=== PATIENT | female | born 2000 | race Caucasian/White ===

== ENCOUNTER 2019-08-15 00:06 | Inpatient (IN) | payer OTHER ==
[2019-08-15] MEDS ORDERED: Lidocaine 1% 50 ML MDV INJECT PRN (00:27)
[2019-08-15] MEDS ORDERED: Sodium Chloride 0.9% 10 ML Syringe FLUSH PRN (00:27)
[2019-08-15] MEDS ORDERED: Sodium Chloride 0.9% 10 ML SDV IV PRN (00:27)
[2019-08-15] MEDS ORDERED: Ampicillin 2 GM in Sodium Chloride 0.9% 100 ML IV ONE (00:27)
[2019-08-15] MEDS ORDERED: Terbutaline 1 MG/ML SDV SUBCUT PRN (00:27)
[2019-08-15] MEDS ORDERED: Methylergonovine 0.2 MG/1 ML Amp IM PRN ×2 (00:27→12:05)
[2019-08-15] MEDS ORDERED: Misoprostol 200 MCG Tab PO PRN (00:27)
[2019-08-15] MEDS ORDERED: Sodium Chloride 0.9% 2.5 ML Syringe FLUSH PRN (00:27)
[2019-08-15] MEDS ORDERED: Misoprostol 25 MCG (1/4 of 100 MCG) Tab VAG PRN ×2 (00:27)
[2019-08-15] MEDS ORDERED: Butorphanol 1 MG/ML SDV IVPUSH PRN (00:27)
[2019-08-15] MEDS ORDERED: Nalbuphine 10 MG/1 ML Vial IVPUSH PRN (00:27)
[2019-08-15] MEDS ORDERED: Carboprost Tromethamine 250 MCG/1 ML Amp IM PRN (00:27)
[2019-08-15] MEDS ORDERED: Tranexamic Acid 1,000 MG in Sodium Chloride 0.9% 100 ML IV PRN (00:27)
[2019-08-15] MEDS ORDERED: Water For Irrigation,Sterile 1,000 ML Container IRR PRN (00:27)
[2019-08-15] MEDS ORDERED: Ondansetron 4 MG/2 ML SDV IVPUSH PRN (00:27)
[2019-08-15] MEDS ORDERED: Oxytocin/0.9 % Sodium Chloride 30 UNIT/500 ML BAG IV SCH ×2 (00:30)
[2019-08-15] MEDS ORDERED: Lactated Ringers 1,000 ML IV SCH (00:30)
[2019-08-15] MEDS ORDERED: Misoprostol 25 MCG (1/4 of 100 MCG) Tab PO ONE (00:31)
[2019-08-15] MEDS ORDERED: Misoprostol 25 MCG (1/4 of 100 MCG) Tab PO SCH (04:00)
[2019-08-15] MEDS: Ampicillin 1 GM in Sodium Chloride 0.9% 50 ML IV SCH ×2 (05:21→09:51)
--- NOTE | 2019-08-15 08:45 | PCM.LDHP ---
L&D History of Present Illness - General Date of Service: 08/15/19 Admit Problem/Dx: Patient Status Order with Admit Dx/Problem 08/15/19 00:27 Patient Status [ADT] Routine Admission Diagnosis/Problem Admission Diagnosis/Problem 08/15/19 08:37 19 yo EDC 08/22/2019 37 0/7wks IOL for term, O+, RI, GBS pos. AROM clear /-2 soft post Source of Information: Patient History Limitations: Reports: No Limitations - History of Present Illness Improves with: Reports: None Worsens with: Reports: None Associated Symptoms: Reports: N - Related Data Allergies/Adverse Reactions: Allergies Allergy/AdvReac Type Severity Reaction Status Date / Time No Known Allergies Allergy Verified 02/25/18 08:30 MDT Home Medications: Home Meds Pnv No.103/Folic/Om3s/Fish Oil [ Gummies] 2 each PO DAILY 02/25/18 [ History] Docusate Sodium [Colace] 100 mg PO BID PRN cap 03/22/18 [Rx] Ibuprofen [Motrin] 600 mg PO Q6H PRN tablet 03/22/18 [Rx] Past Medical History - Past Health History Medical/Surgical History: Denies Medical/Surgical History HEENT History: Reports: None Cardiovascular History: Reports: None Respiratory History: Reports: None Gastrointestinal History: Reports: None Genitourinary History: Reports: None [employer] History: Reports: Musculoskeletal History: Reports: None Neurological History: Reports: Migraines Psychiatric History: Reports: None Endocrine/Metabolic History: Reports: None Hematologic History: Reports: None Immunologic History: Reports: None Oncologic (Cancer) History: Reports: None Dermatologic History: Reports: None - Infectious Disease History Infectious Disease History: Reports: None - Past Surgical History Head Surgeries/Procedures: Reports: None GI Surgical History: Reports: Cholecystectomy Other GI Surgeries/Procedures: 2011 Female Surgical History: Reports: None Neurological Surgical History: Reports: None Dermatological Surgical History: Reports: None Social & Family History - Family History Cardiac: Reports: Hypertension Respiratory: Reports: None Endocrine/Metabolic: Reports: Diabetes, type II - Tobacco Use Smoking Status *Q: Never Smoker Second Hand Smoke Exposure: No - Caffeine Use Caffeine Use: Reports: Coffee Caffeine Use Comment: occasional - Recreational Drug Use Recreational Drug Use: No H&P Review of Systems - Review of Systems: Review Of Systems: See Below General: Reports: No Symptoms HEENT: Reports: No Symptoms Pulmonary: Reports: No Symptoms Cardiovascular: Reports: No Symptoms Gastrointestinal: Reports: No Symptoms Genitourinary: Reports: No Symptoms Musculoskeletal: Reports: No Symptoms Skin: Reports: No Symptoms Psychiatric: Reports: No Symptoms Neurological: Reports: No Symptoms Hematologic/Lymphatic: Reports: No Symptoms Immunologic: Reports: No Symptoms L&D Exam - Exam Exam: See Below - Vital Signs Weight: 82.1 kg - OB Specific Contraction Intensity: Moderate to Strong Movement: Active Heart Tones: Present Heart Rate (FHR) Variability: Moderate (6-25 bmp) Presentation: Vertex - Kiran Score Kiran Score Cervix Position: Posterior Kiran Score Consistency: Soft Kiran Score Effacement: >80% Kiran Score Dilation: 3-4 cm Kiran Score Infant's Station: -2 Kiran Score Total: 8 - Exam General: Alert, Oriented, Cooperative HEENT: Hearing Intact Lungs: Normal Respiratory Effort GI/Abdominal Exam: Soft, Non-Tender Genitourinary: Normal external exam, Normal bimanual exam, Cervical dilitation, Cervical fluid Back Exam: Normal Inspection, Full Range of Motion Extremities: Normal Inspection, Normal Range of Motion, No Pedal Edema Skin: Warm, Dry, Intact Neurological: Cranial Nerves Intact, Normal Speech, Normal Tone, Sensation Intact Psychiatric: Alert, Normal Affect, Normal Mood - Patient Data Lab Results Last 24 hrs: Laboratory Results - last 24 hr 08/15/19 08/15/19 Range/Units 00:46 00:46 WBC 12.46 H (4.0-11.0) K/uL RBC 3.69 L (4.30-5.90) M/uL Hgb 8.5 L (12.0-16.0) g/dL Hct 26.7 L (36.0-46.0) % MCV 72.4 L (80.0-98.0) fL MCH 23.0 L (27.0-32.0) pg MCHC 31.8 (31.0-37.0) g/dL RDW Std Deviation 37.0 (28.0-62.0) fl RDW Coeff of Kevin 15 (11.0-15.0) % Plt Count 295 (150-400) K/uL MPV 10.70 (7.40-12.00) fL Blood Type O POSITIVE Antibody Screen NEGATIVE Result Diagrams: 08/15/19 00:46 - Problem List (1) Supervision of normal IUP (intrauterine ) in multigravida SNOMED Code(s): 865496852, 994650631, 374540994 ICD Code: Z34.80 - ENCOUNTER FOR SUPRVSN OF NORMAL , UNSP TRIMESTER Status: Acute Priority: High Current Visit: Yes Qualifiers: Trimester: third trimester Qualified Code(s): Z34.83 - Encounter for supervision of other normal , third trimester Problem List Initiated/Reviewed/Updated: Yes Orders Last 24hrs: Active Orders 24 hr Category Date Time Status Patient Status [ADT] Routine ADT 08/15/19 00:27 Active Bedrest Bathroom Privileges [RC] ASDIRECTED Care 08/15/19 00:27 Active Communication Order [RC] ASDIRECTED Care 08/15/19 00:27 Active Communication Order [RC] ASDIRECTED Care 08/15/19 00:27 Active Communication Order [RC] ASDIRECTED Care 08/15/19 00:27 Active May Shower [RC] ASDIRECTED Care 08/15/19 00:27 Active Notify Provider [RC] PRN Care 08/15/19 00:27 Active Notify Provider [RC] PRN Care 08/15/19 00:27 Active Notify Provider [RC] PRN Care 08/15/19 00:27 Active Notify Provider [RC] STAT Care 08/15/19 00:27 Active Oxygen Therapy [RC] ASDIRECTED Care 08/15/19 00:27 Active Up ad Nga [RC] ASDIRECTED Care 08/15/19 00:27 Active Vital Signs [RC] PER UNIT ROUTINE Care 08/15/19 00:27 Active Vital Signs [RC] PER UNIT ROUTINE Care 08/15/19 00:27 Active Regular Diet [DIET] Diet 08/15/19 Breakfast Active RPR (SYPHILIS SERO) W/ RFLX [REF] Routine Lab 08/15/19 00:46 Received Ampicillin 1 gm Med 08/15/19 02:00 Active Sodium Chloride 0.9% [Normal Saline] 50 ml IV Q4H Butorphanol [Stadol] Med 08/15/19 00:27 Active 1 mg IVPUSH Q1H PRN Carboprost Tromethamine [Hemabate DS] Med 08/15/19 00:27 Active 250 mcg IM ASDIRECTED PRN Lactated Ringers [Ringers, Lactated] 1,000 ml Med 08/15/19 00:30 Active IV ASDIRECTED Lidocaine 1% [Xylocaine 1%] Med 08/15/19 00:27 Active 50 ml INJECT ONETIME PRN Methylergonovine [Methergine] Med 08/15/19 00:27 Active 0.2 mg IM ASDIRECTED PRN Nalbuphine [Nubain] Med 08/15/19 00:27 Active 10 mg IVPUSH Q1H PRN Ondansetron [Zofran] Med 08/15/19 00:27 Active 4 mg IVPUSH Q6H PRN Oxytocin/0.9 % Sodium Chloride [Oxytocin 30 Unit/500 ML Med 08/15/19 00:30 Active -NS] 30 unit in 500 ml IV TITRATE Oxytocin/0.9 % Sodium Chloride [Oxytocin 30 Unit/500 ML Med 08/15/19 00:30 Active -NS] 30 unit in 500 ml IV TITRATE Sodium Chloride 0.9% [Normal Saline] Med 08/15/19 00:27 Active 10 ml IV ASDIRECTED PRN Sodium Chloride 0.9% [Saline Flush] Med 08/15/19 00:27 Active 10 ml FLUSH ASDIRECTED PRN Sodium Chloride 0.9% [Saline Flush] Med 08/15/19 00:27 Active 2.5 ml FLUSH ASDIRECTED PRN Terbutaline [Brethine] Med 08/15/19 00:27 Active 0.25 mg SUBCUT ASDIRECTED PRN Tranexamic Acid [Cyklokapron] 1,000 mg Med 08/15/19 00:27 Active Sodium Chloride 0.9% [Normal Saline] 100 ml IV ONETIME Water For Irrigation,Sterile [Sterile Water for Med 08/15/19 00:27 Active Irrigation] 1,000 ml IRR ASDIRECTED PRN miSOPROStoL [Cytotec] Med 08/15/19 00:27 Active 200 mcg PO ONETIME PRN miSOPROStoL [Cytotec] Med 08/15/19 04:00 Active 25 mcg PO Q4HR miSOPROStoL [Cytotec] Med 08/15/19 00:27 Active 25 mcg VAG ONETIME PRN miSOPROStoL [Cytotec] Med 08/15/19 00:27 Active 25 mcg VAG Q4H PRN Scalp Electrode [WOMSER] Per Unit Routine Oth 08/15/19 00:27 Ordered Medication Administration Instruction [OM.PC] Q3H Oth 08/15/19 00:30 Ordered Peripheral IV Insertion Adult [OM.PC] Routine Oth 08/15/19 00:27 Ordered Resuscitation Status Routine Resus Stat 08/15/19 00:27 Ordered Medication Orders Butorphanol Tartrate (Stadol) 1 mg IVPUSH Q1H PRN PRN Reason: Pain Carboprost Tromethamine (Hemabate Ds) 250 mcg IM ASDIRECTED PRN PRN Reason: Post Hemorrhage Lactated Ringer's (Ringers, Lactated) 1,000 mls @ 150 mls/hr IV ASDIRECTED ROD Last Admin: 08/15/19 00:59 Dose: 150 mls/hr Oxytocin/Sodium Chloride (Oxytocin 30 Unit/500 Ml-Ns) 30 unit in 500 mls @ 999 mls/hr IV TITRATE ROD Oxytocin/Sodium Chloride (Oxytocin 30 Unit/500 Ml-Ns) 30 unit in 500 mls @ 2 mls/hr IV TITRATE ROD; Protocol Tranexamic Acid 1,000 mg/ (Sodium Chloride) 110 mls @ 660 mls/hr IV ONETIME PRN PRN Reason: Bleeding Ampicillin Sodium 1 gm/ Sodium (Chloride) 50 mls @ 100 mls/hr IV Q4H [facility] Last Infusion: 08/15/19 05:52 Dose: 0 mls/hr Admin: 08/15/19 05:21 Dose: 100 mls/hr Lidocaine HCl (Xylocaine 1%) 50 ml INJECT ONETIME PRN PRN Reason: Laceration repair Methylergonovine Maleate (Methergine) 0.2 mg IM ASDIRECTED PRN PRN Reason: Post Hemorrhage Misoprostol (Cytotec) 200 mcg PO ONETIME PRN PRN Reason: Post Hemorrhage Misoprostol (Cytotec) 25 mcg VAG ONETIME PRN PRN Reason: Cervical Ripening Last Admin: 08/15/19 01:08 Dose: 25 mcg Misoprostol (Cytotec) 25 mcg VAG Q4H PRN PRN Reason: Cervical Ripening Misoprostol (Cytotec) 25 mcg PO Q4HR ROD Nalbuphine HCl (Nubain) 10 mg IVPUSH Q1H PRN PRN Reason: Pain (severe 7-10) Ondansetron HCl (Zofran) 4 mg IVPUSH Q6H PRN PRN Reason: Nausea/Vomiting Sodium Chloride (Saline Flush) 10 ml FLUSH ASDIRECTED PRN PRN Reason: Keep Vein Open Sodium Chloride (Saline Flush) 2.5 ml FLUSH ASDIRECTED PRN PRN Reason: Keep Vein Open Sodium Chloride (Normal Saline) 10 ml IV ASDIRECTED PRN PRN Reason: IV Use Sterile Water (Sterile Water For Irrigation) 1,000 ml IRR ASDIRECTED PRN PRN Reason: delivery Terbutaline Sulfate (Brethine) 0.25 mg SUBCUT ASDIRECTED PRN PRN Reason: Tacysystole Assessment/Plan Comment:: IOL A: 19 yo EDC 08/22/2019 37 0/7wks IOL for term, O+, RI, GBS pos. AROM clear /-2 soft post P: Admit, Amp for GBS pos, pain mng prn, anticipate . Dr Leger updated
[2019-08-15] MEDS ORDERED: Ibuprofen 400 MG Tab PO PRN (11:13)
[2019-08-15] MEDS ORDERED: Bisacodyl 10 MG Supp RECTAL PRN (11:13)
[2019-08-15] MEDS ORDERED: Acetaminophen 500 MG Tab PO PRN ×2 (11:13)
[2019-08-15] MEDS ORDERED: Docusate Sodium 100 MG Cap PO PRN (11:13)
[2019-08-15] MEDS ORDERED: oxyCODONE 5 MG Tab PO PRN (11:13)
[2019-08-15] MEDS ORDERED: Benzocaine/Menthol 20%-0.5% Spray 78 GM Cannister TOP PRN (11:13)
[2019-08-15] MEDS ORDERED: Lanolin 100% Cream 7 GM Tube TOP PRN (11:13)
[2019-08-15] MEDS ORDERED: Witch Hazel Medicated Pads 40/Jar TOP PRN (11:13)
--- NOTE | 2019-08-15 11:23 | PCM.DEL ---
L & D Note - General Info Date of Service: 08/15/19 Mother's Due Date: 08/22/19 - Delivery Note Labor: Augmented by ARM Cervical Ripening Method: Misoprostil Delivery Outcome: Livebirth Delivery Method: Spontaneous Vaginal Delivery-Single Infant Delivery Mode: Spontaneous Presentation: Vertex Nuchal Cord: Present Anesthesia Type: None Amniotic Fluid Description: Clear Episiotomy Type: None Laceration: None Placenta: Intact, Spontaneous Cord: 3 Vessels Estimated Blood Loss: 100 Resuscitation Needed: No [place]: Stimulated Score 1 min: 8 Score 5 min: 9 Second Stage Interventions: Reports: Pushing, Pulls Own Legs Back Delivery Comments (Free Text/Narrative):: of viable male, head and left arm delivered with good pushing, shoulders and body followed. to mothers abd with RN at for evaluation. Cord milked a few times then clamped and cut. Pitocin to IVF. Cord blood collected. Placenta delivered grossly intact. Inspection noted intact perineum. EBL 100cc. APGARS 8/9, Wt: pending bonding. MOther and baby left in stable condition. Induction Criteria - Kiran Score Kiran Score Dilation: 1-2 cm Kiran Score Effacement: 60-70% Kiran Score Infant's Station: -2 Kiran Score Consistency: Soft Kiran Score Cervix Position: Posterior Kiran Score Total: 6 Kiran Score Presenting Part: Reports: Cephalic - Induction Gestational Age >/= 39 wks: Yes Estimated Pelvis: Reports: Adequate Reassuring Monitoring Strip: Yes Absence of Tachy Systole: Yes - General Info Date of Service: 08/15/19 Admission Dx/Problem (Free Text): Patient Status Order with Admit Dx/Problem 08/15/19 00:27 Patient Status [ADT] Routine Admission Diagnosis/Problem Admission Diagnosis/Problem 08/15/19 08:37 19 yo EDC 08/22/2019 37 0/7wks IOL for term, O+, RI, GBS pos. AROM clear 80/-2 soft post Functional Status: Reports: Pain Controlled, Tolerating Diet, Ambulating, Urinating - Review of Systems General: Reports: No Symptoms HEENT: Reports: No Symptoms Pulmonary: Reports: No Symptoms Cardiovascular: Reports: No Symptoms Gastrointestinal: Reports: No Symptoms Genitourinary: Reports: No Symptoms Musculoskeletal: Reports: No Symptoms Skin: Reports: No Symptoms Neurological: Reports: No Symptoms Psychiatric: Reports: No Symptoms - Patient Data Weight - Most Recent: 82.1 kg Lab Results Last 24 Hours: Laboratory Results - last 24 hr 08/15/19 08/15/19 Range/Units 00:46 00:46 WBC 12.46 H (4.0-11.0) K/uL RBC 3.69 L (4.30-5.90) M/uL Hgb 8.5 L (12.0-16.0) g/dL Hct 26.7 L (36.0-46.0) % MCV 72.4 L (80.0-98.0) fL MCH 23.0 L (27.0-32.0) pg MCHC 31.8 (31.0-37.0) g/dL RDW Std Deviation 37.0 (28.0-62.0) fl RDW Coeff of Kevin 15 (11.0-15.0) % Plt Count 295 (150-400) K/uL MPV 10.70 (7.40-12.00) fL Blood Type O POSITIVE Antibody Screen NEGATIVE Med Orders - Current: Current Medications Acetaminophen (Tylenol Extra Strength) 500 mg PO Q4H PRN PRN Reason: Pain Acetaminophen (Tylenol Extra Strength) 1,000 mg PO Q4H PRN PRN Reason: Pain Benzocaine/Menthol (Dermoplast Pain Relief 20%-0.5% [place]) 78 gm TOP ASDIRECTED PRN PRN Reason: Perineal Comfort Measure Bisacodyl (Dulcolax) 10 mg RECTAL ONETIME PRN PRN Reason: Constipation Docusate Sodium (Colace) 100 mg PO BID PRN PRN Reason: Constipation Emollient Ointment (Lansinoh Hpa) 0 gm TOP ASDIRECTED PRN PRN Reason: Sore Nipples Ibuprofen (Motrin) 400 mg PO Q4H PRN PRN Reason: Pain Ibuprofen (Motrin) 800 mg PO Q6H PRN PRN Reason: Pain Oxycodone HCl (Oxycodone) 5 mg PO Q2H PRN PRN Reason: Pain Witch Divine (Tucks) 1 pad TOP ASDIRECTED PRN PRN Reason: comfort care Discontinued Medications Butorphanol Tartrate (Stadol) 1 mg IVPUSH Q1H PRN PRN Reason: Pain Carboprost Tromethamine (Hemabate Ds) 250 mcg IM ASDIRECTED PRN PRN Reason: Post Hemorrhage Ampicillin Sodium 2 gm/ Sodium (Chloride) 100 mls @ 200 mls/hr IV ONETIME ONE Stop: 08/15/19 00:56 Last Admin: 08/15/19 00:59 Dose: 200 mls/hr Lactated Ringer's (Ringers, Lactated) 1,000 mls @ 150 mls/hr IV ASDIRECTED [facility] Last Admin: 08/15/19 00:59 Dose: 150 mls/hr Oxytocin/Sodium Chloride (Oxytocin 30 Unit/500 Ml-Ns) 30 unit in 500 mls @ 999 mls/hr IV TITRATE [facility] Last Admin: 08/15/19 10:54 Dose: 999 mls/hr Oxytocin/Sodium Chloride (Oxytocin 30 Unit/500 Ml-Ns) 30 unit in 500 mls @ 2 mls/hr IV TITRATE [facility]; Protocol Tranexamic Acid 1,000 mg/ (Sodium Chloride) 110 mls @ 660 mls/hr IV ONETIME PRN PRN Reason: Bleeding Ampicillin Sodium 1 gm/ Sodium (Chloride) 50 mls @ 100 mls/hr IV Q4H [facility] Last Admin: 08/15/19 09:51 Dose: 50 mls/hr Lidocaine HCl (Xylocaine 1%) 50 ml INJECT ONETIME PRN PRN Reason: Laceration repair Methylergonovine Maleate (Methergine) 0.2 mg IM ASDIRECTED PRN PRN Reason: Post Hemorrhage Misoprostol (Cytotec) 200 mcg PO ONETIME PRN PRN Reason: Post Hemorrhage Misoprostol (Cytotec) 25 mcg VAG ONETIME PRN PRN Reason: Cervical Ripening Last Admin: 08/15/19 01:08 Dose: 25 mcg Misoprostol (Cytotec) 25 mcg VAG Q4H PRN PRN Reason: Cervical Ripening Misoprostol (Cytotec) 25 mcg PO ONETIME ONE Stop: 08/15/19 00:32 Last Admin: 08/15/19 01:08 Dose: 25 mcg Misoprostol (Cytotec) 25 mcg PO Q4HR [facility] Nalbuphine HCl (Nubain) 10 mg IVPUSH Q1H PRN PRN Reason: Pain (severe 7-10) Ondansetron HCl (Zofran) 4 mg IVPUSH Q6H PRN PRN Reason: Nausea/Vomiting Sodium Chloride (Saline Flush) 10 ml FLUSH ASDIRECTED PRN PRN Reason: Keep Vein Open Sodium Chloride (Saline Flush) 2.5 ml FLUSH ASDIRECTED PRN PRN Reason: Keep Vein Open Sodium Chloride (Normal Saline) 10 ml IV ASDIRECTED PRN PRN Reason: IV Use Sterile Water (Sterile Water For Irrigation) 1,000 ml IRR ASDIRECTED PRN PRN Reason: delivery Terbutaline Sulfate (Brethine) 0.25 mg SUBCUT ASDIRECTED PRN PRN Reason: Tacysystole - Exam General: Alert, Oriented Lungs: Normal Respiratory Effort GI/Abdominal Exam: Soft, Non-Tender (Female) Exam: Normal External Exam, Normal Bimanual Exam, Vaginal Bleeding. No: Vaginal Lesions, Vaginal Tears Back Exam: Full Range of Motion Extremities: Normal Range of Motion, Non-Tender, No Pedal Edema Skin: Warm, Dry, Intact Neurological: No New Focal Deficit, Normal Speech, Normal Tone, Strength Equal Bilateral, Sensation Intact Psy/Mental Status: Alert, Normal Affect, Normal Mood - Problem List & Annotations (1) Supervision of normal IUP (intrauterine ) in multigravida SNOMED Code(s): 366774211, 093650024, 347297835 Code(s): Z34.80 - ENCOUNTER FOR SUPRVSN OF NORMAL , UNSP TRIMESTER Status: Acute Priority: High Current Visit: Yes Qualifiers: Trimester: third trimester Qualified Code(s): Z34.83 - Encounter for supervision of other normal , third trimester (2) (normal spontaneous vaginal delivery) SNOMED Code(s): 53689970, 598198136 Code(s): O80 - ENCOUNTER FOR FULL-TERM UNCOMPLICATED DELIVERY Status: Acute Priority: High Current Visit: Yes - Problem List Review Problem List Initiated/Reviewed/Updated: Yes - My Orders Last 24 Hours: My Active Orders 08/15/19 00:27 Oxygen Therapy [RC] ASDIRECTED Vital Signs [RC] PER UNIT ROUTINE Vital Signs [RC] PER UNIT ROUTINE 08/15/19 00:46 RPR (SYPHILIS SERO) W/ RFLX [REF] Routine 08/15/19 11:13 May Shower [RC] ASDIRECTED Up ad Nga [RC] ASDIRECTED Vital Signs [RC] PER UNIT ROUTINE Acetaminophen [Tylenol Extra Strength] 1,000 mg PO Q4H PRN Acetaminophen [Tylenol Extra Strength] 500 mg PO Q4H PRN Benzocaine/Menthol [Dermoplast Pain Relief 20%-0.5% [place]] 78 gm TOP ASDIRECTED PRN Docusate Sodium [Colace] 100 mg PO BID PRN Ibuprofen [Motrin] 400 mg PO Q4H PRN Ibuprofen [Motrin] 800 mg PO Q6H PRN Lanolin [Lansinoh HPA] See Dose Instructions TOP ASDIRECTED PRN Witch Divine [Tucks] 1 pad TOP ASDIRECTED PRN bisacodyL [Dulcolax] 10 mg RECTAL ONETIME PRN oxyCODONE 5 mg PO Q2H PRN Assess Lochia [WOMSER] Per Unit Routine Assess Uterine Involution [WOMSER] Per Unit Routine Peripheral IV Discontinue [OM.PC] Routine Resuscitation Status Routine 08/15/19 11:14 Patient Status [ADT] Routine 08/15/19 Lunch Regular Diet [DIET] - Plan Plan:: IOL A: 19 yo EDC 08/22/2019 37 0/7wks IOL for term, O+, RI, GBS pos. AROM clear 80/-2 soft post P: Admit, Amp for GBS pos, pain mng prn, anticipate . Dr Leger updated Delivery A: viable male, APGARS 8/9 Wt: pending, EBL 100cc, intact perineum, Stable P: Routine pp plan of care
[2019-08-15] MEDS: Ibuprofen 800 MG Tab PO PRN (11:26)
[2019-08-15] MEDS ORDERED: Oxytocin/0.9 % Sodium Chloride 30 UNIT/500 ML BAG ONE (11:55)
[2019-08-16] MEDS: Ibuprofen 800 MG Tab PO PRN ×2 (04:35→14:12)
--- NOTE | 2019-08-16 08:15 | PCM.DCSUM1 ---
Discharge Summary - Hospital Course Diagnosis: Stroke: No Modified Sal[place] Scale: No Symptoms at All Modified [place] Scale Score: 0 - Discharge Data Discharge Date: 08/16/19 Discharge Disposition: Home, Self-Care 01 Condition: Good - Referral to Home Health Primary Care Physician: PCP None - Discharge Diagnosis/Problem(s) (1) Supervision of normal IUP (intrauterine ) in multigravida SNOMED Code(s): 381041739, 593009694, [id number] ICD Code: Z34.80 - ENCOUNTER FOR SUPRVSN OF NORMAL , UNSP TRIMESTER Status: Acute Priority: High Current Visit: Yes Qualifiers: Trimester: third trimester Qualified Code(s): Z34.83 - Encounter for supervision of other normal , third trimester (2) (normal spontaneous vaginal delivery) SNOMED Code(s): 49071115, 735925323 ICD Code: O80 - ENCOUNTER FOR FULL-TERM UNCOMPLICATED DELIVERY Status: Acute Priority: High Current Visit: Yes - Patient Instructions Diet: Usual Diet as Tolerated Activity: As Tolerated, No Strenuous Activities, Rest and Relax Today Driving: May Drive Today Showering/Bathing: May Shower Notify Provider of: Fever, Increased Pain, Swelling and Redness, Nausea and/or Vomiting - Discharge Plan *PRESCRIPTION DRUG MONITORING PROGRAM REVIEWED*: Not Applicable *COPY OF PRESCRIPTION DRUG MONITORING REPORT IN PATIENT ENZO: Not Applicable Home Medications: Home Meds Pnv No.103/Folic/Om3s/Fish Oil [ Gummies] 2 each PO DAILY 02/25/18 [ History] Docusate Sodium [Colace] 100 mg PO BID PRN cap 03/22/18 [Rx] Ibuprofen [Motrin] 600 mg PO Q6H PRN tablet 03/22/18 [Rx] Oxygen Therapy Mode: Room Air - Discharge Summary/Plan Comment DC Time >30 min.: Yes - General Info Date of Service: 08/16/19 Admission Dx/Problem (Free Text: Patient Status Order with Admit Dx/Problem 08/15/19 00:27 Patient Status [ADT] Routine Admission Diagnosis/Problem Admission Diagnosis/Problem 08/15/19 08:37 19 yo EDC 08/22/2019 37 0/7wks IOL for term, O+, RI, GBS pos. AROM clear /-2 soft post Functional Status: Reports: Pain Controlled, Tolerating Diet, Ambulating, Urinating - Review of Systems General: Reports: No Symptoms HEENT: Reports: No Symptoms Pulmonary: Reports: No Symptoms Cardiovascular: Reports: No Symptoms Gastrointestinal: Reports: No Symptoms Genitourinary: Reports: No Symptoms Musculoskeletal: Reports: No Symptoms Skin: Reports: No Symptoms Neurological: Reports: No Symptoms Psychiatric: Reports: No Symptoms - Patient Data Vitals - Most Recent: Last Vital Signs Temp 36.5 C 08/16/19 04:00 Pulse 70 08/16/19 04:00 Resp 16 08/16/19 04:00 BP 102/66 08/16/19 04:00 Pulse Ox 98 08/16/19 04:00 Weight - Most Recent: 82.1 kg Lab Results - Last 24 hrs: Laboratory Results - last 24 hr 08/16/19 Range/Units 05:45 Hgb 7.3 L (12.0-16.0) g/dL Hct 23.2 L (36.0-46.0) % Med Orders - Current: Current Medications Acetaminophen (Tylenol Extra Strength) 500 mg PO Q4H PRN PRN Reason: Pain Acetaminophen (Tylenol Extra Strength) 1,000 mg PO Q4H PRN PRN Reason: Pain Last Admin: 08/15/19 17:30 Dose: 1,000 mg Benzocaine/Menthol (Dermoplast Pain Relief 20%-0.5% [place]) 78 gm TOP ASDIRECTED PRN PRN Reason: Perineal Comfort Measure Bisacodyl (Dulcolax) 10 mg RECTAL ONETIME PRN PRN Reason: Constipation Docusate Sodium (Colace) 100 mg PO BID PRN PRN Reason: Constipation Emollient Ointment (Lansinoh Hpa) 0 gm TOP ASDIRECTED PRN PRN Reason: Sore Nipples Ibuprofen (Motrin) 400 mg PO Q4H PRN PRN Reason: Pain Ibuprofen (Motrin) 800 mg PO Q6H PRN PRN Reason: Pain Last Admin: 08/16/19 04:35 Dose: 800 mg Methylergonovine Maleate (Methergine) 0.2 mg IM Q4H PRN PRN Reason: Bleeding Oxycodone HCl (Oxycodone) 5 mg PO Q2H PRN PRN Reason: Pain Witch Divine (Tucks) 1 pad TOP ASDIRECTED PRN PRN Reason: comfort care Discontinued Medications Butorphanol Tartrate (Stadol) 1 mg IVPUSH Q1H PRN PRN Reason: Pain Carboprost Tromethamine (Hemabate Ds) 250 mcg IM ASDIRECTED PRN PRN Reason: Post Hemorrhage Ampicillin Sodium 2 gm/ Sodium (Chloride) 100 mls @ 200 mls/hr IV ONETIME ONE Stop: 08/15/19 00:56 Last Admin: 08/15/19 00:59 Dose: 200 mls/hr Lactated Ringer's (Ringers, Lactated) 1,000 mls @ 150 mls/hr IV ASDIRECTED ROD Last Admin: 08/15/19 00:59 Dose: 150 mls/hr Oxytocin/Sodium Chloride (Oxytocin 30 Unit/500 Ml-Ns) 30 unit in 500 mls @ 999 mls/hr IV TITRATE ROD Last Admin: 08/15/19 10:54 Dose: 999 mls/hr Oxytocin/Sodium Chloride (Oxytocin 30 Unit/500 Ml-Ns) 30 unit in 500 mls @ 2 mls/hr IV TITRATE [facility]; Protocol Tranexamic Acid 1,000 mg/ (Sodium Chloride) 110 mls @ 660 mls/hr IV ONETIME PRN PRN Reason: Bleeding Ampicillin Sodium 1 gm/ Sodium (Chloride) 50 mls @ 100 mls/hr IV Q4H [facility] Last Admin: 08/15/19 09:51 Dose: 50 mls/hr Oxytocin/Sodium Chloride (Oxytocin 30 Unit/500 Ml-Ns) Confirm Administered Dose 30 unit in 500 mls @ as directed .ROUTE .STK-MED ONE Stop: 08/15/19 11:56 Last Admin: 08/15/19 11:59 Dose: 999 mls/hr Lidocaine HCl (Xylocaine 1%) 50 ml INJECT ONETIME PRN PRN Reason: Laceration repair Methylergonovine Maleate (Methergine) 0.2 mg IM ASDIRECTED PRN PRN Reason: Post Hemorrhage Last Admin: 08/15/19 12:19 Dose: 0.2 mg Misoprostol (Cytotec) 200 mcg PO ONETIME PRN PRN Reason: Post Hemorrhage Misoprostol (Cytotec) 25 mcg VAG ONETIME PRN PRN Reason: Cervical Ripening Last Admin: 08/15/19 01:08 Dose: 25 mcg Misoprostol (Cytotec) 25 mcg VAG Q4H PRN PRN Reason: Cervical Ripening Misoprostol (Cytotec) 25 mcg PO ONETIME ONE Stop: 08/15/19 00:32 Last Admin: 08/15/19 01:08 Dose: 25 mcg Misoprostol (Cytotec) 25 mcg PO Q4HR ROD Nalbuphine HCl (Nubain) 10 mg IVPUSH Q1H PRN PRN Reason: Pain (severe 7-10) Ondansetron HCl (Zofran) 4 mg IVPUSH Q6H PRN PRN Reason: Nausea/Vomiting Sodium Chloride (Saline Flush) 10 ml FLUSH ASDIRECTED PRN PRN Reason: Keep Vein Open Sodium Chloride (Saline Flush) 2.5 ml FLUSH ASDIRECTED PRN PRN Reason: Keep Vein Open Sodium Chloride (Normal Saline) 10 ml IV ASDIRECTED PRN PRN Reason: IV Use Sterile Water (Sterile Water For Irrigation) 1,000 ml IRR ASDIRECTED PRN PRN Reason: delivery Terbutaline Sulfate (Brethine) 0.25 mg SUBCUT ASDIRECTED PRN PRN Reason: Tacysystole - Exam General: Reports: Alert, Oriented, Cooperative, No Acute Distress Lungs: Reports: Normal Respiratory Effort GI/Abdominal Exam: Soft, Non-Tender (Female) Exam: Deferred, Vaginal Bleeding Rectal (Female) Exam: Deferred Back Exam: Reports: Normal Inspection, Full Range of Motion Extremities: Normal Inspection, Normal Range of Motion, Non-Tender, No Pedal Edema Skin: Reports: Warm, Dry, Intact Neurological: Reports: No New Focal Deficit, Normal Speech, Normal Tone, Strength Equal Bilateral Psy/Mental Status: Reports: Alert, Normal Affect, Normal Mood
== END 2019-08-16 14:28 | disposition home or self-care (01) | DRG 807 ==
LOC: MW.OBCHECK 00:06 → MW.OB 00:06 → MW.MS 00:09 → MW.OBCHECK 00:09 → MW.OB 00:27 → OBSVTOIN 10:51 → MW.OB 14:30
PROVIDERS: ADMIT Obstetrics & Gynecology; ATTEND Obstetrics & Gynecology
PROC: 10E0XZZ Delivery of Products of Conception, External Approach (ICD-10-PCS; principal; 2019-08-15)
PROC: 10907ZC Drainage of Amniotic Fluid, Therapeutic from Products of Conception, Via Natural or Artificial Opening (ICD-10-PCS; 2019-08-15)
PROC: 3E0P7VZ Introduction of Hormone into Female Reproductive, Via Natural or Artificial Opening (ICD-10-PCS; 2019-08-15)
DX: O80 Encounter for full-term uncomplicated delivery (principal); Z37.0 Single live birth; Z3A.39 39 weeks gestation of pregnancy
CPT/HCPCS: 36415; 59025; 59409; 85014; 85018; 85027; 86592; 86850; 86900; 86901; A9270-GY; J0290; J2210; J2590; J7050; J7120

== ENCOUNTER 2022-06-08 06:16 | Inpatient (IN) | payer BC ==
[2022-06-08] MEDS ORDERED: Misoprostol 25 MCG (1/4 of 100 MCG) Tab VAG PRN ×2 (06:21)
[2022-06-08] MEDS ORDERED: Terbutaline 1 MG/ML SDV SUBCUT PRN (06:21)
[2022-06-08] MEDS ORDERED: Oxytocin/0.9 % Sodium Chloride 30 UNIT/500 ML BAG IV SCH ×2 (06:30→16:30)
[2022-06-08] MEDS ORDERED: Misoprostol 25 MCG (1/4 of 100 MCG) Tab PO PRN (07:21)
[2022-06-08] MEDS ORDERED: ePHEDrine 50 MG/ML SDV IVPUSH PRN ×2 (07:35)
[2022-06-08] MEDS ORDERED: Phenylephrine HCl In 0.9% NaCl 1 MG/10 ML Vial IVPUSH SCH (07:45)
[2022-06-08] MEDS ORDERED: Ropivacaine HCl/PF 400 MG in Premix Bag 1 BAG EPIDUR SCH (07:45)
[2022-06-08] MEDS: Lactated Ringers 1,000 ML IV SCH ×2 (16:25→23:56)
[2022-06-08] MEDS ORDERED: Misoprostol 200 MCG Tab PO PRN (16:27)
[2022-06-08] MEDS ORDERED: Sodium Chloride 0.9% 20 ML SDV IV PRN (16:27)
[2022-06-08] MEDS ORDERED: Water For Irrigation,Sterile 1,000 ML Container IRR PRN (16:27)
[2022-06-08] MEDS ORDERED: Methylergonovine 0.2 MG/1 ML Amp IM PRN (16:27)
[2022-06-08] MEDS ORDERED: Sodium Chloride 0.9% 2.5 ML Syringe FLUSH PRN (16:27)
[2022-06-08] MEDS ORDERED: Tranexamic Acid 1,000 MG in Sodium Chloride 0.9% 100 ML IV PRN (16:27)
[2022-06-08] MEDS ORDERED: Sodium Chloride 0.9% 10 ML Syringe FLUSH PRN (16:27)
[2022-06-08] MEDS ORDERED: Lidocaine 1% 50 ML MDV INJECT PRN (16:27)
[2022-06-08] MEDS ORDERED: Carboprost Tromethamine 250 MCG/1 ML Amp IM PRN (16:27)
[2022-06-09] MEDS: Butorphanol 1 MG/ML SDV IVPUSH PRN ×2 (04:48→08:28)
[2022-06-09] MEDS: Lactated Ringers 1,000 ML IV SCH (09:56)
[2022-06-09] MEDS ORDERED: Lanolin 100% Cream 7 GM Tube TOP PRN (10:05)
[2022-06-09] MEDS ORDERED: Ibuprofen 400 MG Tab PO PRN (10:05)
[2022-06-09] MEDS ORDERED: Docusate Sodium 100 MG Cap PO PRN (10:05)
[2022-06-09] MEDS ORDERED: Acetaminophen 500 MG Tab PO PRN ×2 (10:05)
[2022-06-09] MEDS ORDERED: Ibuprofen 800 MG Tab PO PRN (10:05)
[2022-06-09] MEDS ORDERED: oxyCODONE 5 MG Tab PO PRN (10:05)
[2022-06-09] MEDS ORDERED: Benzocaine/Menthol 20%-0.5% Spray 78 GM Cannister TOP PRN (10:05)
[2022-06-09] MEDS ORDERED: Bisacodyl 10 MG Supp RECTAL PRN (10:05)
[2022-06-09] MEDS: Witch Hazel Medicated Pads 40/Jar TOP PRN ×2 (12:46→23:27)
== END 2022-06-10 13:46 | disposition home or self-care (01) | DRG 560 ==
LOC: MW.OBCHECK 06:16 → MW.OB 06:17 → MW.OBCHECK 07:15 → OBSVTOIN 06-09 09:50 → MW.OB 06-09 13:00
PROVIDERS: ADMIT Obstetrics & Gynecology; ATTEND Obstetrics & Gynecology
PROC: 10E0XZZ Delivery of Products of Conception, External Approach (ICD-10-PCS; principal; 2022-06-09)
PROC: 10907ZC Drainage of Amniotic Fluid, Therapeutic from Products of Conception, Via Natural or Artificial Opening (ICD-10-PCS; 2022-06-09)
PROC: 3E0P7VZ Introduction of Hormone into Female Reproductive, Via Natural or Artificial Opening (ICD-10-PCS; 2022-06-09)
PROC: 3E033VJ Introduction of Other Hormone into Peripheral Vein, Percutaneous Approach (ICD-10-PCS; 2022-06-09)
DX: O48.0 Post-term pregnancy (principal); Z3A.40 40 weeks gestation of pregnancy; Z37.0 Single live birth; O69.81X0 Labor and delivery complicated by cord around neck, without compression, not applicable or unspecified; Z20.822 Contact with and (suspected) exposure to COVID-19
CPT/HCPCS: 36415; 59025; 59409; 85014; 85018; 85027; 86592; 86850; 86900; 86901; A9270-GY; J0595; J2590; J7120; U0002